=== PATIENT | female | born 1935 | race Caucasian/White ===

== ENCOUNTER 2017-05-14 20:56 | Emergency (ER) | payer MEDICARE ==
[~2017-05-14] VITALS: Ht 165.1 cm; Wt 109.0 kg
[~2017-05-14 20:56] MED LIST: CEPH500C3 PO; COUM5TAB PO; SYNT125T PO
[2017-05-14 21:12] VITALS: BP 139/84; PULSE 100; RESP 20; TEMP 98.3; O2SAT 95
[2017-05-14] MEDS ORDERED: LEVO.125 PO (21:39)
[2017-05-14] MEDS ORDERED: COUM7.5T PO (21:39)
[2017-05-14] MEDS ORDERED: CEPH-460 PO (21:39)
[2017-05-14] MEDS ORDERED: SODIUM CHLOR 0.9% 1000 ML INJ 1,000 ML IV ONE (22:16)
--- NOTE | 2017-05-14 22:16 | PD ---
HPI Chief Complaint: Complaint Time Seen by Provider: 22:14 Travel History International Travel<30 days: No Contact w/Intl Traveler<30days: No Traveled to known affect area: No History of Present Illness HPI The patient is a 81-year-old female that complains of dysuria, frequency and urgency but also left flank pain and left UVJ pain. She states she has a history of kidney stones and this feels similar to her previous kidney stones. She denies any nausea, vomiting, diarrhea or fever. PFSH Past Medical History Hx Anticoagulant Therapy: Yes (COUMADIN) Asthma: No Anxiety: No Depression: No Cancer: Yes (BREAST) Cardiovascular Problems: Yes (DVT X's 2 ) Chemotherapy: Yes (1998) Congestive Heart Failure: No Diminished Hearing: No Deep Vein Thrombosis: Yes (LEFT LEG) Endocrine: Yes Gastrointestinal Disorders: Yes (C-DIFF) Genitourinary: Yes Immune Disorder: No Implanted Vascular Access Dvce: No Kidney Stones: Yes Musculoskeletal: No Neurologic: No Psychiatric: No Reproductive: No Respiratory: No Pneumonia: Yes Radiation Therapy: Yes (1998) Renal Failure: No Sleep Apnea: No Thyroid Disease: Yes Tetanus Vaccination: Unknown Influenza Vaccination: Yes ?: Not Menopausal: Yes : 3 Para: 1 Miscarriage: 2 : 0 Tubal Ligation: Yes Past Surgical History Abdominal Surgery: Yes (APPENDIX) AICD: No Appendectomy: Yes Arteriovenous Shunt: No Cardiac Surgery: No Ear Surgery: No Endocrine Surgery: No Eye Surgery: Yes (BILATERAL CATARACTS) Genitourinary Surgery: Yes (KIDNEY STONES) Gynecologic Surgery: Yes Insulin Pump: No Joint Replacement: Yes (RT KNEE) Neurologic Surgery: No Oral Surgery: Yes Pacemaker: No Thoracic Surgery: No Tonsillectomy: Yes Other Surgery: Yes (LEFT BREAST LUMPECTOMY: 1998) Social History Alcohol Use: No Tobacco Use: No (QUIT AGE 34) Substance Use: No Allergies-Medications (Allergen,Severity, Reaction): Coded Allergies: No Known Allergies (Unverified , 05/14/17) Reported Meds & Prescriptions Reported Meds & Active Scripts Active Pyridium (Phenazopyridine HCl) 100 Mg Tab 100 Mg PO Q8H PRN Macrobid (Nitrofurantoin Monohydrate Macrocrystals) 100 Mg Capsule 100 Mg PO BID 10 Days Reported Coumadin (Warfarin) 7.5 Mg Tab 7 Mg PO HS Synthroid (Levothyroxine Sodium) 125 Mcg Tab 125 Mcg PO DAILY Keflex (Cephalexin) 500 Mg Capsule 500 Mg PO TID Review of Systems Except as stated in HPI: all other systems reviewed are Neg Physical Exam Narrative GENERAL: The patient is alert, oriented 3 in moderate apparent distress with her left flank pain. Her vital signs show heart rate of 100 but otherwise normal. SKIN: Focused skin assessment warm/dry. No skin rash is seen. HEAD: Atraumatic. Normocephalic. EYES: Pupils equal and round. No scleral icterus. No injection or drainage. ENT: No nasal bleeding or discharge. Mucous membranes pink and moist. NECK: Trachea midline. No JVD. CARDIOVASCULAR: Regular rate and rhythm. No murmur appreciated. RESPIRATORY: No accessory muscle use. Clear to auscultation. Breath sounds equal bilaterally. GASTROINTESTINAL: Abdomen soft, with tenderness to direct palpation in the left flank area as well as left UVJ area, nondistended. Hepatic and splenic margins not palpable. No guarding or rebound is present. MUSCULOSKELETAL: No obvious deformities. No clubbing. No cyanosis. No edema. NEUROLOGICAL: Awake and alert. No obvious cranial nerve deficits. Motor grossly within normal limits. Normal speech. PSYCHIATRIC: Appropriate mood and affect; insight and judgment normal. Data Data Last Documented VS Vital Signs Date Time Temp Pulse Resp B/P Pulse Ox O2 Delivery O2 Flow Rate FiO2 05/14/17 23:11 81 18 154/74 98 Room Air 05/14/17 21:12 98.3 Orders Urinalysis - C+S If Indicated (05/14/17 21:53) Complete Blood Count With Diff (05/14/17 22:16) Basic Metabolic Panel (Bmp) (05/14/17 22:16) Ct Abd/Pel W/O Iv Contrast (05/14/17 22:16) Ecg Monitoring (05/14/17 22:16) Iv Access Insert/Monitor (05/14/17 22:16) Ketorolac Inj (Toradol Inj) (05/14/17 22:30) Sodium Chloride 0.9% Flush (Ns Flush) (05/14/17 22:30) Sodium Chlor 0.9% 1000 Ml Inj (Ns 1000 M (05/14/17 22:16) Urine Culture (05/14/17 21:34) Nitrofurantoin Monohyd Macrocr (Macrobid (05/14/17 22:45) Phenazopyridine (Pyridium) (05/14/17 22:45) Labs Laboratory Tests Test 05/14/17 05/14/17 21:34 22:20 Urine Color YELLOW Urine Turbidity CLEAR Urine pH 5.5 Urine Specific [place] 1.021 Urine Protein NEG mg/dL Urine Glucose (UA) NEG mg/dL Urine Ketones NEG mg/dL Urine Occult Blood TRACE Urine Nitrite NEG Urine Bilirubin NEG Urine Leukocyte Esterase TRACE Urine RBC 4-9 /hpf Urine WBC 15-19 /hpf Urine WBC Clumps FEW Urine Squamous Epithelial 6-8 /hpf Cells Urine Renal Epithelial Cells 0-5 /hpf Urine Mucus FEW /lpf Microscopic Urinalysis Comment CULTURE INDICATED White Blood Count 8.5 TH/MM3 Red Blood Count 4.71 MIL/MM3 Hemoglobin 13.7 GM/DL Hematocrit 42.0 % Mean Corpuscular Volume 89.3 FL Mean Corpuscular Hemoglobin 29.0 PG Mean Corpuscular Hemoglobin 32.5 % Concent Red Cell Distribution Width 14.5 % Platelet Count 216 TH/MM3 Mean Platelet Volume 8.6 FL Neutrophils (%) (Auto) 63.1 % Lymphocytes (%) (Auto) 28.4 % Monocytes (%) (Auto) 6.4 % Eosinophils (%) (Auto) 1.7 % Basophils (%) (Auto) 0.4 % Neutrophils # (Auto) 5.5 TH/MM3 Lymphocytes # (Auto) 2.4 TH/MM3 Monocytes # (Auto) 0.5 TH/MM3 Eosinophils # (Auto) 0.1 TH/MM3 Basophils # (Auto) 0.0 TH/MM3 CBC Comment DIFF FINAL Differential Comment Sodium Level 139 MEQ/L Potassium Level 4.5 MEQ/L Chloride Level 104 MEQ/L Carbon Dioxide Level 28.1 MEQ/L Anion Gap 7 MEQ/L Blood Urea Nitrogen 20 MG/DL Creatinine 0.80 MG/DL Estimat Glomerular Filtration 69 ML/MIN Rate Random Glucose 98 MG/DL Calcium Level 9.0 MG/DL [facility] Medical Decision Making Medical Screen Exam Complete: Yes Emergency Medical Condition: Yes Medical Record Reviewed: Yes Interpretation(s) The CT abdomen/pelvis without IV contrast is normal. The urine shows trace occult blood, trace leukocyte esterase, 4-9 red cells with 15-19 white cells and few white cell clumping's and culture is indicated. The basic metabolic profile shows a BUN of 20, GFR of 69 but is otherwise unremarkable. The CBC is normal. Differential Diagnosis Pyelonephritis, cystitis, urinary stone, electrolyte disorder, anemia, renal insufficiency Narrative Course The patient appears to have both pyelonephritis and cystitis. She has tenderness in the flank area as well as dysuria, frequency and urgency. Plan: The patient will increase liquid intake and is given Macrobid. Diagnosis Primary Impression: Pyelonephritis Additional Impression: Cystitis Additional Instructions: As we discussed, it is important to increase liquid intake and establish a good urine flow through your kidneys. Follow-up with her primary care physician next week. The Pyridium will turn your urine orange, this is the medicine that eases up some of the pain that you have when urinating. Med/Other Pt SpecificInfo: Prescription(s) given Scripts Phenazopyridine (Pyridium)100 Mg [id number] Mg PO Q8H PRN (DYSURIA) #20 TAB Ref 0 Prov:Adrien Ramsey MD 05/14/17 Nitrofurantoin Monohydrate Macrocrystals (Macrobid)100 Mg [id number] Mg PO BID 10 Days Ref 0 Prov:Adrien Ramsey MD 05/14/17 Disposition: 01 DISCHARGE HOME Condition: Stable dArien Ramsey MD May 14, 2017 22:16
[2017-05-14 22:17] LABS: BLOOD, URINE TRACE (NEG); GLUCOSE,URINE NEG (NEG); KETONE, URINE NEG (NEG); NITRITE,URINE NEG (NEG); PH, URINE 5.5 (5.0-8.5)
[2017-05-14 22:23] LABS: URINE COLOR YELLOW (YELLW/STRAW)
[2017-05-14 22:24] LABS: MUCUS URINE FEW /lpf (OCC)
[2017-05-14 22:25] LABS: RENAL EPITHELIAL CELLS 0-5 /hpf
[2017-05-14 22:26] LABS: COMMENT (UR) CULTURE INDICATED; CULTURE IF INDICATED CULTURE INDICATED; WBC, URINE 15-19 /hpf (0-5)
[2017-05-14] MEDS ORDERED: KETOROLAC TROMETHAMINE 30 MG/ML (IVP) VIAL IVP ONE (22:30)
[2017-05-14] MEDS ORDERED: SODIUM CHLORIDE 0.9% FLUSH 10 ML FLUSH IVF PRN (22:30)
[2017-05-14 22:45] LABS: AUTOMATED NEUTROPHIL # 5.5 TH/MM3 (1.8-7.7); BASOPHIL % 0.4 % (0.0-2.0); EOSINOPHIL # 0.1 TH/MM3 (0-0.4); EOSINOPHIL % 1.7 % (0.0-4.0); HEMO FLAGS DIFF FINAL; LYMPH % 28.4 % (9.0-44.0); LYMPHOCYTE # 2.4 TH/MM3 (1.0-4.8); MEAN CELL VOLUME 89.3 FL (80.0-100.0); MEAN CORPUSCULAR HGB CONC 32.5 % (32.0-36.0); MONO % 6.4 % (0.0-8.0); NEUT % 63.1 % (16.0-70.0); PLATELET COUNT 216 TH/MM3 (150-450); RED BLOOD COUNT 4.71 MIL/MM3 (4.00-5.30); RED CELL DISTRIBUTION WIDTH 14.5 % (11.6-17.2); WHITE BLOOD COUNT 8.5 TH/MM3 (4.0-11.0)
[2017-05-14] MEDS ORDERED: PHENAZOPYRIDINE HCL 200 MG TAB PO ONE (22:45)
[2017-05-14] MEDS ORDERED: NITROFURANTOIN MONOHYD MACROCR 100 MG CAP PO ONE (22:45)
[2017-05-14] MEDS ORDERED: MACR100C2 PO (22:46)
[2017-05-14] MEDS ORDERED: PHEN0.4T PO (22:46)
[2017-05-14 22:59] LABS: POTASSIUM 4.5 MEQ/L (3.5-5.1)
[2017-05-14 23:02] LABS: BICARBONATE 28.1 MEQ/L (21.0-32.0)
[2017-05-14 23:11] VITALS: BP 154/74; PULSE 81; RESP 18; O2SAT 98
--- NOTE | 2017-05-14 23:14 | RADRPT ---
EXAM DATE/TIME: 05/14/2017 22:50 [facility] COMPARISON: CT ABDOMEN & PELVIS W/O CONTRAST, January 27, 2016, 21:20. INDICATIONS : Painful urination past 10 days. ORAL CONTRAST: No oral contrast ingested. RADIATION DOSE: 42.43 CTDIvol (mGy) MEDICAL HISTORY : Deep venous thrombosis. Renal calculi. Carcinoma, breast. SURGICAL HISTORY : Appendectomy. Tubal ligation. ENCOUNTER: Initial ACUITY: 1 week PAIN SCALE: 6/10 LOCATION: abdomen TECHNIQUE: Volumetric scanning of the abdomen and pelvis was performed. Using automated exposure control and ad justment of the mA and/or kV according to patient size, radiation dose was kept as low as reasonably achievable to obtain optimal diagnostic quality images. DICOM format image data is available electro nically for review and comparison. FINDINGS: LOWER LUNGS: The visualized lower lungs are clear. LIVER: Homogeneous density without lesion. There is no dilation of the biliary tree. No calcified gallston es. SPLEEN: Normal size without lesion. PANCREAS: Within normal limits. KIDNEYS: Normal in size and shape. There is no mass, stone, or hydronephrosis. ADRENAL GLANDS: Within normal limits. VASCULAR: There is no aortic aneurysm. BOWEL/MESENTERY: The stomach, small bowel, and colon demonstrate no acute abnormality. There is no free intraperitone al air or fluid. ABDOMINAL WALL: Within normal limits. RETROPERITONEUM: There is no lymphadenopathy. BLADDER: No wall thickening or mass. REPRODUCTIVE: Within normal limits. INGUINAL: There is no lymphadenopathy or hernia. MUSCULOSKELETAL: Within normal limits for patient age. CONCLUSION: Normal examination. The colonic wall thickening in 2016 is now unremarkable. Chuck Woodruff MD on May 14, 2017 at 23:09 Board Certified Radiologist. This report was verified electronically.
== END 2017-05-14 23:44 | disposition home or self-care (01) ==
LOC: PHED 20:56
DX: N30.90 Cystitis, unspecified without hematuria (principal); N12 Tubulo-interstitial nephritis, not specified as acute or chronic; B96.89 Other specified bacterial agents as the cause of diseases classified elsewhere; Z79.01 Long term (current) use of anticoagulants; Z86.718 Personal history of other venous thrombosis and embolism
CPT/HCPCS: 74176; 80048; 81001; 85025; 87086; 96361; 96374; 99285; J1885; J7030

== ENCOUNTER 2017-11-06 22:16 | Emergency (ER) | payer MEDICARE ==
[~2017-11-06] VITALS: Ht 165.1 cm; Wt 99.5 kg
[~2017-11-06 22:16] MED LIST changes: +CEPH-460 PO; -CEPH500C3 PO; -COUM5TAB PO; +COUM7.5T PO; +LEVO.125 PO; +MACR100C2 PO; +PHEN0.4T PO; -SYNT125T PO
[2017-11-06 22:20] VITALS: BP 190/96; PULSE 87; RESP 16; TEMP 97.9; O2SAT 96
[2017-11-06] MEDS ORDERED: GABA100C4 PO (22:29)
[2017-11-06] MEDS ORDERED: APIX5TAB PO (22:29)
[2017-11-06] MEDS ORDERED: PRIM50TA5 PO (22:29)
--- NOTE | 2017-11-06 22:53 | PD ---
HPI Chief Complaint: Flank/Kidney Pain Time Seen by Provider: 22:49 Travel History International Travel<30 days: No Contact w/Intl Traveler<30days: No Traveled to known affect area: No History of Present Illness HPI 82-year-old female presents to the emergency department because of hematuria and left flank pain since Tuesday. Patient states that the hematuria has resolved but she continues to have flank pain and has noticed severe pain with urination. Patient was seen in her urologist office and given a prescription for Bactrim was told to not use it for 48 hours. Patient is also given something to home with her urinary symptoms that was a blue pill but she can't recall the name of it and she has been taking this for 2 days without symptom relief. Patient takes Eliquis for history of DVT. Patient has history of DVT kidney stones hypothyroidism hypertension and previous appendectomy hysterectomy and ureteral stent placement. The patient rates her pain 10 over 10 in intensity. Patient is unable to identify exacerbating or alleviating factors. Patient has been experiencing dysuria frequency and urgency. Patient denies fever or chills. Patient has had nausea without vomiting. No chest pain no shortness of breath no abdominal pain. PFSH Past Medical History Hx Anticoagulant Therapy: Yes (COUMADIN) Asthma: No Anxiety: No Depression: No Cancer: Yes (BREAST) Cardiovascular Problems: Yes (DVT X's 2 ) Chemotherapy: Yes (1998) Congestive Heart Failure: No Diminished Hearing: No Deep Vein Thrombosis: Yes (LEFT LEG) Endocrine: Yes Gastrointestinal Disorders: Yes (C-DIFF) Genitourinary: Yes Immune Disorder: No Implanted Vascular Access Dvce: No Kidney Stones: Yes Musculoskeletal: No Neurologic: No Psychiatric: No Reproductive: No Respiratory: No Pneumonia: Yes Radiation Therapy: Yes (1998) Renal Failure: No Sleep Apnea: No Thyroid Disease: Yes Tetanus Vaccination: > 5 Years Influenza Vaccination: Yes ?: Not Menopausal: Yes : 3 Para: 1 Miscarriage: 2 : 0 Tubal Ligation: Yes Past Surgical History Abdominal Surgery: Yes (APPENDIX) AICD: No Appendectomy: Yes Arteriovenous Shunt: No Cardiac Surgery: No Ear Surgery: No Endocrine Surgery: No Eye Surgery: Yes (BILATERAL CATARACTS) Genitourinary Surgery: Yes (KIDNEY STONES) Gynecologic Surgery: Yes Hysterectomy: Yes Insulin Pump: No Joint Replacement: Yes (RT KNEE) Neurologic Surgery: No Oral Surgery: Yes Pacemaker: No Thoracic Surgery: No Tonsillectomy: Yes Other Surgery: Yes (LEFT BREAST LUMPECTOMY: 1998) Social History Alcohol Use: No Tobacco Use: No (QUIT AGE 34) Substance Use: No Allergies-Medications (Allergen,Severity, Reaction): Coded Allergies: No Known Allergies (Unverified Adverse Reaction, Unknown, 11/06/17) Reported Meds & Prescriptions Reported Meds & Active Scripts Active Zofran Odt (Ondansetron Odt) 4 Mg Tab 4 Mg SL Q6HR PRN Percocet (Oxycodone-Acetaminophen) 5-325 mg Tab 0.5-1 Tab PO Q6H PRN Reported Primidone 50 Mg Tab 75 Mg PO TID Gabapentin 100 Mg Cap 100 Mg PO TID Eliquis (Apixaban) 5 Mg Tab 5 Mg PO BID Synthroid (Levothyroxine Sodium) 125 Mcg Tab 125 Mcg PO DAILY Review of Systems Except as stated in HPI: all other systems reviewed are Neg Physical Exam Narrative GENERAL: Well-developed well-nourished female in no acute distress no respiratory distress SKIN: Warm and dry. HEAD: Normocephalic. EYES: No scleral icterus. No injection or drainage. NECK: Supple, trachea midline. No JVD or lymphadenopathy. CARDIOVASCULAR: Regular rate and rhythm without murmurs, gallops, or rubs. RESPIRATORY: Breath sounds equal bilaterally. No accessory muscle use. GASTROINTESTINAL: Abdomen soft, non-tender, nondistended. MUSCULOSKELETAL: No cyanosis, or edema. BACK: Nontender without obvious deformity. No CVA tenderness. Data Data Last Documented VS Vital Signs Date Time Temp Pulse Resp B/P (MAP) Pulse Ox O2 Delivery O2 Flow Rate FiO2 11/06/17 22:20 97.9 87 16 190/96 (127) [address] Abd/Pel W/O Iv Contrast (11/06/17 ) Urinalysis - C+S If Indicated (11/06/17 22:49) Ibuprofen (Motrin) (11/06/17 23:00) Urine Culture (11/06/17 22:56) ^ Saline Lock (11/06/17 23:28) Ceftriaxone Inj (Rocephin Inj) (11/06/17 23:30) Oxycodone-Acetamin 5-325 Mg (Percocet (11/06/17 23:30) Ondansetron Inj (Zofran Inj) (11/06/17 23:30) Sodium Chlorid 0.9% 500 Ml Inj (Ns 500 M (11/06/17 23:30) Labs Laboratory Tests Test 11/06/17 22:56 Urine Collection Type CLEAN CATCH Urine Color YELLOW Urine Turbidity MOD Urine pH 5.5 Urine Specific [place] 1.004 Urine Protein TRACE mg/dL Urine Glucose (UA) NEG mg/dL Urine Ketones NEG mg/dL Urine Occult Blood LARGE Urine Nitrite NEG Urine Bilirubin NEG Urine Leukocyte Esterase LARGE Urine RBC 0-3 /hpf Urine WBC 100-200 /hpf Urine WBC Clumps FEW Urine Squamous Epithelial Cells 0-5 /hpf Urine Bacteria OCC /hpf Urine Mucus OCC /lpf Microscopic Urinalysis Comment CULTURE INDICATED MDM Medical Decision Making Medical Screen Exam Complete: Yes Emergency Medical Condition: Yes Medical Record Reviewed: Yes Interpretation(s) UA: White blood cells clumped white blood cells bacteria; culture indicated Vital Signs Date Time Temp Pulse Resp B/P (MAP) Pulse Ox O2 Delivery O2 Flow Rate FiO2 11/06/17 22:20 97.9 87 16 190/96 (127) 96 CT abd/pel: CONCLUSION: There are small nonobstructing stones in both kidneys. Ninoska Trevino MD on November 06, 2017 at 23:15 Board Certified Radiologist. This report was verified electronically. Differential Diagnosis Flank pain dysuria UTI pyelonephritis obstructive uropathy Narrative Course Urine specimen sent for urinalysis and CT kidney stone protocol ordered Diagnosis Primary Impression: UTI (urinary tract infection) Referrals: Primary Care Physician call for appointment Urologist 2 days Patient Instructions: General Instructions Additional Instructions: Increase fluid hydration Take your antibiotic Bactrim twice daily as prescribed Follow-up with your urologist call office on Tuesday schedule follow-up Take pain medication as prescribed as needed May take Tylenol/acetaminophen every 4 hours for minor pain or for fever 100.4 F or greater Return to the emergency department for any concerns or change in condition Med/Other Pt SpecificInfo: Prescription(s) given Scripts Ondansetron Odt (Zofran Odt) 4 Mg Tab 4 MG SL Q6HR Y for Nausea/Vomiting, #10 TAB 0 Refills Prov: Cyndy Guaman MD 11/06/17 Oxycodone-Acetaminophen (Percocet) 5-325 mg Tab 0.5-1 TAB PO Q6H Y for PAIN, #12 TAB 0 Refills Prov: Cyndy Guaman MD 11/06/17 Disposition: 01 DISCHARGE HOME Condition: Stable Cyndy Guaman MD Nov 06, 2017 22:53
[2017-11-06] MEDS ORDERED: IBUPROFEN 600 MG TAB PO ONE (23:00)
[2017-11-06 23:01] LABS: BILIRUBIN, URINE NEG (NEG); BLOOD, URINE LARGE (NEG); GLUCOSE,URINE NEG (NEG); KETONE, URINE NEG (NEG); NITRITE,URINE NEG (NEG); PH, URINE 5.5 (5.0-8.5); URINE LEUKOCYTE ESTERASE LARGE (NEG)
[2017-11-06 23:06] LABS: URINE COLOR YELLOW (YELLW/STRAW); WBC, URINE 100-200 /hpf (0-5); WHITE BLOOD CELL CLUMPS FEW
[2017-11-06 23:07] LABS: BACTERIA, URINE OCC /hpf; SQUAMOUS EPITHELIAL CELL URINE 0-5 /hpf (0-5)
[2017-11-06 23:08] LABS: MUCUS URINE OCC /lpf (OCC); RBC, URINE 0-3 /hpf (0-3)
--- NOTE | 2017-11-06 23:23 | RADRPT ---
EXAM DATE/TIME: 11/06/2017 22:56 [facility] COMPARISON: CT ABDOMEN & PELVIS W/O CONTRAST, May 14, 2017, 22:50. INDICATIONS : Hematuria. Left flank pain for 2 days. ORAL CONTRAST: No oral contrast ingested. RADIATION DOSE: 27.26 CTDIvol (mGy) ; Patient body habitus MEDICAL HISTORY : Renal calculi. Carcinoma, breast. SURGICAL HISTORY : Hysterectomy. Appendectomy. ENCOUNTER: Initial ACUITY: 2 days PAIN SCALE: 10/10 LOCATION: Left flank TECHNIQUE: Volumetric scanning of the abdomen and pelvis was performed. Using automated exposure control and adjustment of the mA and/or kV according to patient size, radiation dose was kept as low as reasonably achievable to obtain optimal diagnostic quality images. DICOM format image data is av ailable electronically for review and comparison. FINDINGS: CT Abdomen: The liver, spleen, pancreas, adrenals are unremarkable. There is an approximate 8 mm ston e in the right kidney with a separate tiny 2 mm stone. There are 3 tiny 1 mm stones in left kidney an d questionable third tiny 1 mm stone in the right kidney as well. There is no ureteral stone and ther e is no hydronephrosis on either side. There are cysts in both kidneys some of which are parapelvic C hronic vascular calcifications are present involving the aorta, iliac arteries without any significan t stenosis or aneurysmal dilatations for technique.There is no evidence for any appreciable pathologi tiffany adenopathy, free fluid, or bowel obstruction. CT pelvis: There is no evidence for mass, abscess formation, or any significant adenopathy within the pelvis. There are degenerative changes and possible bulging discs in the lower lumbosacral spine no t adequately characterized. CONCLUSION: There are small nonobstructing stones in both kidneys. Ninoska Trevino MD on November 06, 2017 at 23:15 Board Certified Radiologist. This report was verified electronically.
[2017-11-06] MEDS ORDERED: SODIUM CHLORID 0.9% 500 ML INJ 500 ML IV ONE (23:30)
[2017-11-06] MEDS ORDERED: cefTRIAXone INJ 1,000 MG in SODIUM CHLORIDE 0.9% INJ 100 ML IV ONE (23:30)
[2017-11-06] MEDS ORDERED: ONDANSETRON HCL 4 MG/2 ML VIAL IV PUSH ONE (23:30)
[2017-11-06] MEDS ORDERED: oxyCODONE/ACETAMINOPHEN 5 MG/325 MG TAB PO ONE (23:30)
[2017-11-06] MEDS ORDERED: PERC5TAB12 PO (23:31)
[2017-11-06] MEDS ORDERED: ZOFR4TAB3 SL (23:31)
[2017-11-06 23:52] VITALS: BP 180/88; PULSE 85; RESP 16; TEMP 98; O2SAT 97
[2017-11-07 00:56] VITALS: BP 177/84; TEMP 98
== END 2017-11-07 00:57 | disposition home or self-care (01) ==
LOC: PHED 22:16
DX: N39.0 Urinary tract infection, site not specified (principal); B96.20 Unspecified Escherichia coli [E. coli] as the cause of diseases classified elsewhere; N20.0 Calculus of kidney; E03.9 Hypothyroidism, unspecified; I10 Essential (primary) hypertension; E07.9 Disorder of thyroid, unspecified; Z85.3 Personal history of malignant neoplasm of breast; Z87.442 Personal history of urinary calculi; Z86.718 Personal history of other venous thrombosis and embolism
CPT/HCPCS: 74176; 81001; 87077; 87086; 87186; 96361; 96365; 96375; 99285; J0696; J2405; J7040

== ENCOUNTER 2018-02-18 17:00 | Emergency (ER) | payer MEDICARE ==
[~2018-02-18] VITALS: Ht 165.1 cm; Wt 95.0 kg
[~2018-02-18 17:00] MED LIST changes: +APIX5TAB PO; -CEPH-460 PO; -COUM7.5T PO; +GABA100C4 PO; -MACR100C2 PO; +PERC5TAB12 PO; -PHEN0.4T PO; +PRIM50TA5 PO; +ZOFR4TAB3 SL
[2018-02-18 17:03] VITALS: BP 199/100; PULSE 82; RESP 16; TEMP 98.6; O2SAT 98
[2018-02-18] MEDS ORDERED: WARF-22 PO (17:17)
--- NOTE | 2018-02-18 17:43 | PD ---
HPI Chief Complaint: Allergic/Adverse Reaction Time Seen by Provider: 17:41 Travel History International Travel<30 days: No Contact w/Intl Traveler<30days: No Traveled to known affect area: No History of Present Illness HPI Patient presents with concerns of elevated blood pressure, facial flushing, anxiety and tingling in her lower extremities. States she was watching a baseball game when these feelings overcame her acutely approximate hour prior to arrival. States that the only thing is changed in her life is she started on Cipro last night for sinusitis. Unable to recall if she is taken Cipro in the past. Denies any past medical history of hypertension. Reports normal blood pressures in the 120s over 70s. PFSH Past Medical History Hx Anticoagulant Therapy: Yes (COUMADIN) Asthma: No Anxiety: No Depression: No Cancer: Yes (BREAST) Cardiovascular Problems: Yes (DVT X's 2 ) Chemotherapy: Yes (1998) Congestive Heart Failure: No Diminished Hearing: No Deep Vein Thrombosis: Yes (LEFT LEG) Endocrine: Yes Gastrointestinal Disorders: Yes (C-DIFF) Genitourinary: Yes Immune Disorder: No Implanted Vascular Access Dvce: No Kidney Stones: Yes Musculoskeletal: No Neurologic: No Psychiatric: No Reproductive: No Respiratory: No Pneumonia: Yes Radiation Therapy: Yes (1998) Renal Failure: No Sleep Apnea: No Thyroid Disease: Yes Influenza Vaccination: Yes Menopausal: Yes : 3 Para: 1 Miscarriage: 2 : 0 Tubal Ligation: Yes Past Surgical History Abdominal Surgery: Yes (APPENDIX) AICD: No Appendectomy: Yes Arteriovenous Shunt: No Cardiac Surgery: No Ear Surgery: No Endocrine Surgery: No Eye Surgery: Yes (BILATERAL CATARACTS) Genitourinary Surgery: Yes (KIDNEY STONES) Gynecologic Surgery: Yes Hysterectomy: Yes Insulin Pump: No Joint Replacement: Yes (RT KNEE) Neurologic Surgery: No Oral Surgery: Yes Pacemaker: No Thoracic Surgery: No Tonsillectomy: Yes Other Surgery: Yes (LEFT BREAST LUMPECTOMY: 1998) Social History Alcohol Use: No Tobacco Use: No (QUIT AGE 34) Substance Use: No Allergies-Medications (Allergen,Severity, Reaction): Coded Allergies: No Known Allergies (Unverified Adverse Reaction, Unknown, 02/18/18) Reported Meds & Prescriptions Reported Meds & Active Scripts Active Reported Warfarin 10 Mg Tab 15 Mg PO DAILY Primidone 50 Mg Tab 75 Mg PO TID Gabapentin 100 Mg Cap 100 Mg PO TID Synthroid (Levothyroxine Sodium) 125 Mcg Tab 125 Mcg PO DAILY Review of Systems General / Constitutional: No: Fever Eyes: No: Visual changes HENT: No: Headaches Cardiovascular: No: Chest Pain or Discomfort Respiratory: No: Shortness of Breath Gastrointestinal: No: Abdominal Pain Genitourinary: No: Dysuria Musculoskeletal: No: Pain Skin: No Rash Neurologic: No: Weakness Psychiatric: No: Depression Endocrine: No: Polydipsia Hematologic/Lymphatic: No: Easy Bruising Physical Exam Narrative GENERAL: Well-nourished, well-developed patient. SKIN: Focused skin assessment warm/dry. HEAD: Normocephalic. EYES: No scleral icterus. No injection or drainage. NECK: Supple, trachea midline. No JVD or lymphadenopathy. CARDIOVASCULAR: Regular rate and rhythm without murmurs, gallops, or rubs. RESPIRATORY: Breath sounds equal bilaterally. No accessory muscle use. GASTROINTESTINAL: Abdomen soft, non-tender, nondistended. MUSCULOSKELETAL: No cyanosis, or edema. BACK: Nontender without obvious deformity. No CVA tenderness. Data Data Last Documented VS Vital Signs Date Time Temp Pulse Resp B/P (MAP) Pulse Ox O2 Delivery O2 Flow Rate FiO2 02/18/18 18:49 164/81 (108) 02/18/18 17:03 98.6 82 16 98 Orders Orders Alprazolam (Xanax) (02/18/18 17:45) Diphenhydramine (Benadryl) (02/18/18 17:45) [facility] Medical Decision Making Medical Screen Exam Complete: Yes Emergency Medical Condition: Yes Differential Diagnosis Drug reaction, anxiety, hypertension, lumbar degenerative disc disease Narrative Course Assessment plan discussed with patient and friend at bedside. Patient received Xanax and Benadryl with resolution of symptoms. Blood pressure much improved. Additional Instructions: Xanax for anxiety, Benadryl as needed, encouraged a blood pressure log for evaluation with PCP. Follow-up with ENT. Return to emerge from with any onset of new symptoms. Encourage cessation of Cipro and initiation of Zithromax. Med/Other Pt SpecificInfo: Existing Med Changed Scripts Alprazolam (Xanax) 0.25 Mg Tab 0.25 MG PO Q4H Y for ANXIETY, #15 TAB 0 Refills Prov: Mark Gold MD 02/18/18 Azithromycin (Zithromax) 500 Mg Tab 500 MG PO DAILY for Infection for 5 Days, #5 TAB 0 Refills Prov: Mark Gold MD 02/18/18 Disposition: 01 DISCHARGE HOME Condition: Good Mark Gold MD Feb 18, 2018 17:43
[2018-02-18] MEDS ORDERED: diphenhydrAMINE HCL 25 MG CAP PO ONE (17:45)
[2018-02-18] MEDS ORDERED: ALPRAZolam 0.25 MG TAB PO ONE (17:45)
[2018-02-18 18:49] VITALS: BP 164/81
[2018-02-18] MEDS ORDERED: ZITH500T PO (19:01)
[2018-02-18] MEDS ORDERED: ALPR.25 PO (19:01)
== END 2018-02-18 19:12 | disposition home or self-care (01) ==
LOC: PHEFT 17:00
DX: F41.9 Anxiety disorder, unspecified (principal); R03.0 Elevated blood-pressure reading, without diagnosis of hypertension; J32.9 Chronic sinusitis, unspecified; E07.9 Disorder of thyroid, unspecified; Z87.891 Personal history of nicotine dependence; Z86.718 Personal history of other venous thrombosis and embolism; Z79.01 Long term (current) use of anticoagulants; Z87.442 Personal history of urinary calculi; Z85.3 Personal history of malignant neoplasm of breast
CPT/HCPCS: 99283